=== PATIENT | female | born 2000 | race Caucasian/White ===

== ENCOUNTER 2023-07-12 14:50 | Emergency (ER) | payer OTHER, SELFPAY ==
--- NOTE | ~2023-07-12 | CT_ITS ---
EXAMINATION: CT cervical spine wo con DATE: 07/12/2023 20:55 INDICATION: Neck pain. Paresthesias. TECHNIQUE: Computed tomography (CT) of the cervical spine was performed without intravenous contrast. Automated exposure control and iterative reconstruction technique were employed. The dose-length pro duct was 439.74 mGy-cm. COMPARISON: None FINDINGS: There is kyphosis of cervical spine. Vertebral body heights are normal. Intervertebral disc heights are normal. 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 The following disc levels are specifically discussed: C2-C3: There is no uncovertebral joint osteoarthritis. There is mild bilateral facet joint osteoarthr itis. There is no neural foraminal stenosis. There is no central canal stenosis. C3-C4: There is no uncovertebral joint osteoarthritis. There is no facet joint osteoarthritis. There is no neural foraminal stenosis. There is mild central canal stenosis. C4-C5: There is no uncovertebral joint osteoarthritis. There is no facet joint osteoarthritis. There is no neural foraminal stenosis. There is mild central canal stenosis. C5-C6: There is mild bilateral uncovertebral joint osteoarthritis. There is no facet joint osteoarthr itis. There is no neural foraminal stenosis. There is mild central canal stenosis. C6-C7: There is no uncovertebral joint osteoarthritis. There is no facet joint osteoarthritis. There is no neural foraminal stenosis. There is mild central canal stenosis. C7-T1: There is no uncovertebral joint osteoarthritis. There is severe right and moderate left facet joint osteoarthritis. There is mild right neural foraminal stenosis. There is no central canal stenos is. IMPRESSION: 1. Mild cervical spondylosis. Reviewed, dictated and finalized at location E. ALL TECHNICIAN
--- NOTE | ~2023-07-12 | CT_ITS ---
EXAMINATION: CT brain wo con DATE: 07/12/2023 20:55 INDICATION: Paresthesias. Neck pain. TECHNIQUE: Computed tomography (CT) of the head was performed without intravenous contrast. The mA wa s adjusted according to patient size. Iterative reconstruction technique was employed. The dose-lengt h product was 605.33 mGy-cm. COMPARISON: None FINDINGS: There is no intracranial hemorrhage, acute infarction, or abnormal intracranial mass lesion . The ventricles are normal in size. The orbits are normal. There is mild mucosal thickening in the e thmoid sinuses. The mastoid air cells are normal. IMPRESSION: 1. Normal brain. Reviewed, dictated and finalized at location E. NT CHILDCARE PROVIDER IMPRESSION: 1. Normal brain.
--- NOTE | ~2023-07-12 | XR_ITS ---
EXAMINATION: XR chest 2V DATE: 07/12/2023 15:12 INDICATION: Chest pain. Left arm tingling. TECHNIQUE: Frontal and lateral views of the chest were obtained. COMPARISON: Chest 2 views 06/02/2017 FINDINGS: There is no pneumonia, pleural effusion, or pneumothorax. The heart size is normal. IMPRESSION: 1. No acute cardiopulmonary disease. Reviewed, dictated and finalized at location E. STRENGTH AND CONDITIONING COACH
[2023-07-12 14:52] VITALS: BP 143/91; PULSE 82; RESP 18; TEMP 36.6; O2SAT 100
--- NOTE | 2023-07-12 14:52 | ECG_ITS ---
Measurements Intervals [place] Rate: 77 P: 64 NC: 127 QRS: 34 QRSD: 112 T: 42 QT: 399 QTc: 454 Interpretive Statements SINUS RHYTHM WITH SINUS ARRHYTHMIA MODERATE INTRAVENTRICULAR CONDUCTION DELAY [110+ ms QRS DURATION] NO PREVIOUS ECG AVAILABLE FOR COMPARISON Electronically Signed On 07-12-2023 19:18:30 PRACTICAL NURSING FACULTY by Myrna Aj M.D.
[2023-07-12 15:46] LABS: Basophils Percent Auto 0.3 % (0.2-1.2); Eosinophils Absolute Auto 0.1 K/mm3 (0-0.3); Eosinophils Percent Auto 0.6 % (0-4.4); Hematocrit 41.3 % (37.0-47.0); Hemoglobin 13.9 g/dL (12.0-15.0); Immature Granulocyte Absolute 0.02 K/mm3 (0.00-0.031); Immature Granulocyte Percent A 0.3 % (0-0.5); Lymphocytes Absolute Auto 3.24 K/mm3 (0.9-3.2); Lymphocytes Percent Auto 41.6 % (18.3-44.2); Mean Corpuscular HGB Conc 33.7 g/dl (32-36); Mean Platelet Volume 10.2 fl (7.4-10.4); Monocytes Absolute Auto 0.4 K/mm3 (0.1-0.6); Monocytes Percent Auto 5.4 % (2.6-8.5); Neutrophils Percent Auto 51.8 % (45.5-73.1); Platelet Count Result 265 k/mm3 (150-375); Red Blood Count 4.49 M/mm3 (4.2-5.4); Red Cell Distribution Width 12.3 % (11.5-14.5); White Blood Count 7.8 K/mm3 (4.5-10.0)
[2023-07-12 15:56] LABS: Alanine Aminotransferase 18 U/L (6-35); Albumin Level 4.6 g/dL (3.5-5.1); Alkaline Phosphatase 59 U/L (38-126); Anion Gap 7 mmol/L (8-16); Aspartate Amino Transferase 30 U/L (14-36); Bilirubin,Total 0.5 mg/dL (0.2-1.3); Blood Urea Nitrogen 11 mg/dL (7-17); Calcium 9.2 mg/dL (8.4-10.2); Carbon Dioxide 24 mmol/L (22-30); Chloride 107 mmol/L (98-107); Estimated CRCL calculation 124 ml/min; Estimated Glomerular Filt Rate > 60; Glucose 86 mg/dL (65-110); Lipase 51 U/L (23-300); Potassium 3.9 mmol/L (3.4-5.0); Sodium 138 mmol/L (137-145)
[2023-07-12 16:02] LABS: Prothrombin Time 13.5 Seconds (11.1-14.7)
[2023-07-12 16:03] LABS: Partial Thromboplastin Time 30.3 SECONDS (22.3-36.8)
[2023-07-12 16:06] LABS: Troponin I < 0.012 ng/mL (0.000-0.034)
[2023-07-12 19:19] VITALS: BP 141/76; PULSE 83; RESP 14; O2SAT 99
--- NOTE | 2023-07-12 19:43 | ED.CHESTPAIN ---
HPI - Chest Pain General Chief Complaint: Chest Pain Stated Complaint: Chest pain since Sunday Time Seen by Provider: 07/12/23 19:41 Source: patient Mode of arrival: ambulatory Limitations: no limitations History of Present Illness HPI narrative: This is a 22-year-old female that presents to the emergency department for chest pain ongoing over the last week. Reports the pain is sharp and burning in nature. Also reports she has been experiencing some neck pain and paresthesias in her left arm. She has been seeing a chiropractor for this. Reports mild shortness of breath. Denies fever, cough, abdominal pain, or lower extremity edema. Related Data Allergies Allergy/AdvReac Type Severity Reaction Status Date / Time No Known Allergies Allergy Verified 07/12/23 19:42 Review of Systems Review of Systems: CONSTITUTIONAL: Denies fever CARDIOVASCULAR: Reports chest pain. Denies edema. RESPIRATORY: Reports dyspnea. Denies cough GASTROINTESTINAL: Denies abdominal pain, nausea, vomiting MUSCULOSKELETAL: Reports joint pain, and myalgia. NEUROLOGIC: Denies numbness, or weakness. All systems reviewed & are unremarkable except as noted in HPI and below PMFSH Past Medical History Medical History (Updated 07/12/23 @ 21:43 by Supriya Jaffe PA-C) No active medical problems Social History Social History (Updated 07/12/23 @ 21:43 by Supriya Jaffe PA-C) Smoking status: Never smoker Exam Narrative: GENERAL: Well-appearing, well-nourished, and in no acute distress. HEAD: Normocephalic, atraumatic. EYES: PERRLA and EOMI. ENT: Nares clear, no rhinorrhea or epistaxis. Mucous membranes moist. Oropharynx without tonsillar hypertrophy exudate or other lesions. Bilateral TMs pearly nguyen non-bulging NECK: Supple. No adenopathy or masses. No JVD CHEST: Clear to auscultation. No respiratory distress. No wheezes rales or rhonchi HEART: Regular rate and rhythm. No murmur heard. Normal peripheral pulses. ABDOMEN: Soft, nondistended, normal active bowel sounds. EXTREMITIES: Normal range of motion. No edema. Strength equal in bilateral upper and lower extremities (5/5) SKIN: Warm, dry, no rash. NEURO: No focal deficits. Alert and oriented x3. Cranial nerves 2-12 grossly intact PSYCH: Normal mood and affect Course Course Emergency Course: Patient updated on workup and agrees with plan of care Vital Signs Vital signs: Vital Signs Temperature 97.8 F 07/12/23 14:52 Pulse Rate 82 07/12/23 14:52 Respiratory Rate 18 07/12/23 14:52 Blood Pressure 143/91 H 07/12/23 14:52 Pulse Oximetry 100 07/12/23 14:52 Oxygen Delivery Room Air 07/12/23 14:52 Temperature 97.8 F 07/12/23 14:52 Pulse Rate 83 07/12/23 19:19 Respiratory Rate 14 07/12/23 19:19 Blood Pressure 141/76 H 07/12/23 19:19 Pulse Oximetry 99 07/12/23 19:19 Oxygen Delivery Room Air 07/12/23 19:45 MDM - Chest Pain MDM Narrative Medical decision making narrative: Patient presents to the emergency department for chest pain ongoing over the last several days. Reporting mild shortness of breath. Also reporting neck pain with left arm paresthesias. Patient's lungs are clear on exam. Oxygen saturation is 100% on room air. She is neurologically intact. CBC metabolic panel without concerning findings. EKG without acute ST changes in baseline and 3 hour troponin are negative. Her D-dimer is not elevated. Chest x-ray without acute cardiopulmonary abnormality. CT scan of her brain is normal. CT scan of her cervical spine shows mild cervical spondylosis. Her heart score is 1. Patient was updated on her workup. Resting comfortably. Instructed to have close follow-up with primary provider. She was given warnings to return to the ER Differential Diagnosis Differential diagnosis: Likely stable angina, atypical chest pain, costochondritis, chest pain and other (muscle strain, cervical radiculopathy) Lab Data Attestation: I reviewed the
[2023-07-12 19:56] LABS: Troponin I < 0.012 ng/mL (0.000-0.034)
[2023-07-12] MEDS: ACETAMINOPHEN 500 MG TABLET 1000 MG PO (20:08)
[2023-07-12] MEDS: KETOROLAC 15 MG/ML VIAL (*BKC) IV PUSH (20:08)
[2023-07-12] MEDS: PANTOPRAZOLE SODIUM IV 40 MG VIAL IV PUSH (20:09)
[2023-07-12 20:32] LABS: D Dimer 0.28 ug/mL (<0.48)
[2023-07-12 21:55] VITALS: BP 141/76; PULSE 78; RESP 16; O2SAT 98
== END 2023-07-12 21:57 | disposition home or self-care (01) ==
PROVIDERS: Emergency Medicine; Emergency Provider Physician Assistant
DX: M54.2 Cervicalgia (principal); R07.89 Other chest pain; M47.812 Spondylosis without myelopathy or radiculopathy, cervical region; I45.9 Conduction disorder, unspecified
CPT/HCPCS: 36415; 70450; 71046; 72125; 80053; 83690; 84484; 85025; 85380; 85610; 85730; 93005; 96374; 96375; 99284; A9270; C9113; J1885

== ENCOUNTER 2024-01-30 11:19 | Emergency (ER) | payer OTHER, SELFPAY ==
[2024-01-30 11:20] VITALS: BP 154/88; PULSE 105; RESP 18; TEMP 36.8; O2SAT 98
--- NOTE | 2024-01-30 11:36 | ED.GENADULT ---
HPI - General Adult General Chief complaint: Anxiety Stated complaint: anxiety Time Seen by Provider: 01/30/24 11:34 Source: patient Mode of arrival: ambulatory Limitations: no limitations History of Present Illness HPI narrative: 23-year-old female history of anxiety tonsillar stone presents to the ER with multiple complaints including -- decreased appetite and a weight loss of around 20 lb since the beginning of this month. patient has nausea without any vomiting/abdominal pain / diarrhea -- upper chest discomfort which is unrelated to activity. There is no radiation of the pain. -- Generalized weakness -- feels lightheaded when she stands up for long periods of time -- Intermittent chills without any fever. no fever or chills. No focal neuro deficits. Related Data Allergies Allergy/AdvReac Type Severity Reaction Status Date / Time No Known Allergies Allergy Verified 07/12/23 19:42 Review of Systems Review of Systems: All systems reviewed & are unremarkable except as noted in HPI and below Constitutional: Constitutional: Reports as per HPI, Reports no additional constitutional complaints, Reports chills and Reports weakness Eyes: Eyes: Reports as per HPI and Reports no additional eye complaints ENT: Reports system reviewed and no additional complaints, except as documented and Reports as per HPI Cardiovascular: Cardiovascular: Reports as per HPI, Reports no additional cardiovascular complaints and Reports chest pain Respiratory: Respiratory: Reports as per HPI, Reports no additional respiratory complaints and Reports dyspnea Gastrointestinal: Gastrointestinal: Reports as per HPI, Reports no additional gastrointestinal complaints and Reports nausea Comments: Anorexia Genitourinary: Genitourinary: Reports no additional female genitourinary complaints Musculoskeletal: Musculoskeletal: Reports no additional musculoskeletal complaints and Reports as per HPI Integumentary/Breasts: Skin/Breast: Reports system reviewed and no additional complaints, except as docu and Reports as per HPI Neurologic: Reports system reviewed and no additional complaints, except as documented and Reports as per HPI Psychiatric: Psychiatric: Reports no additional psychiatric complaints and Reports as per HPI Endocrine: Endocrine: Reports no additional endocrine complaints and Reports as per HPI Hematologic/Lymphatic: Hematologic/Lymphatic: Reports no additional hematologic/lymphatic complaints and Reports as per HPI Allergic/Immunologic: Allergic/Immunologic: Reports no additional allergic/immunologic complaints and Reports as per HPI PMFSH Past Medical History Medical History No active medical problems Social History Social History Smoking status: Never smoker Exam Narrative: blood pressure 154/88. Pulse rate of 105 with an oxygen saturation of 98% on room air. Const: General: healthy appearing and no acute distress Nutritional Appearance: well nourished Orientation/consciousness: patient oriented x3 Limitations: no limitations HENMT: Head: normal to inspection Ears: external ears normal Face/Nose/Sinus: Normal external nose present Face and sinus: normal facial exam Mouth: Yes Normal oral and palatal mucosa present Throat: posterior oropharynx normal Eyes: Conjunctivae: conjunctivae normal Pupils: Equal, round and reactive pupils present EOM: EOMs intact bilaterally Direct Ophthalmoscopy: no photophobia Neck: Neck: normal visual inspection, no lymphadenopathy and no meningeal signs Chest: Chest palpation & inspection: normal inspection of the chest Resp: Effort & Inspection: normal respiratory effort Auscultation: clear to auscultation bilaterally Cardio: Rate: regular rate Rhythm: regular rhythm GI: GI Palp: Yes Soft to palpation Auscultation: normal bowel sounds Other: No te
--- NOTE | 2024-01-30 11:47 | ECG_ITS ---
Test Date: 2024-01-30 11:55:29 Measurements Intervals [place] Rate: 93 P: 79 AR: 125 QRS: 82 QRSD: 106 T: 54 QT: 363 QTc: 451 Interpretive Statements SINUS RHYTHM No previous ECG available for comparison Electronically Signed On 01-30-2024 11:57:07 CDT by Kriss Jacinto M.D.
[2024-01-30 12:07] LABS: Basophils Absolute Auto 0.01 K/mm3 (0.00-0.10); Basophils Percent Auto 0.1 % (0.0-1.0); Hematocrit 42.9 % (35.0-49.0); Hemoglobin 14.9 g/dL (12.0-15.0); Immature Granulocyte Absolute 0.03 K/mm3 (0.00-0.00); Immature Granulocyte Percent A 0.3 % (0.0-0.0); Lymphocytes Percent Auto 22.9 % (18.0-42.0); Mean Corpuscular HGB Conc 34.7 g/dL (32-36); Mean Corpuscular Hemoglobin 31.6 pg (27.0-31.0); Mean Corpuscular Volume 91.1 fL (78.0-102.0); Mean Platelet Volume 10.3 fl (9.2-11.8); Monocytes Absolute Auto 0.32 K/mm3 (0.10-0.90); Monocytes Percent Auto 3.3 % (2.0-11.0); Neutrophils Absolute Auto 7.05 K/mm3 (1.70-7.20); Neutrophils Percent Auto 73.4 % (50.0-70.0); Platelet Count Result 302 K/mm3 (150-420); Red Blood Count 4.71 M/mm3 (4.20-5.40); White Blood Count 9.6 K/mm3 (4.8-10.8)
[2024-01-30 12:10] VITALS: BP 120/74; PULSE 101; RESP 20; O2SAT 97
[2024-01-30 12:19] LABS: Prothrombin Time 10.7 Seconds (9.50-12.1)
[2024-01-30 12:26] LABS: Troponin I < 4.0 ng/L (0.00-60.4)
[2024-01-30 12:29] LABS: Appearance Urine Clear (Clear); Bilirubin Urine Negative (Negative); Blood Urine Negative (Negative); Color Urine Light Yellow (Yellow); Glucose Urine UA Negative (Negative); Ketones Urine Negative (Negative); Leukocyte Esterase Ur Negative LEU/UL (Negative); Nitrate Urine Negative (Negative); Protein Urine Negative (Negative); Urobilinogen Urine 0.2 mg/dL (0.2-1.0)
[2024-01-30 12:29] LABS: Lactic Acid Reflex 1.1 mmol/L (0.4-2.0)
[2024-01-30 12:32] LABS: Alanine Aminotransferase 15 U/L (14-59); Albumin Level 3.9 g/dL (3.4-5.0); Alkaline Phosphatase 48 U/L (46-116); Anion Gap 10 mmol/L (4-12); Aspartate Amino Transferase 20 U/L (15-37); Bilirubin,Total 0.4 mg/dL (0.00-1.00); Blood Urea Nitrogen 10 mg/dL (7-18); Calcium 8.9 mg/dL (8.5-10.1); Carbon Dioxide 25 mmol/L (21-32); Chloride 104 mmol/L (98-108); Estimated CRCL calculation 109 ml/min; Estimated Glomerular Filt Rate > 60; Glucose 87 mg/dL (70-99); Lipase 17 U/L (16-77); Osmolality Calculated 286 mOsm/kg (285-295); Potassium 3.9 mmol/L (3.5-5.1); Sodium 139 mmol/L (136-145); Thyroid Stimulating Hormone 0.81 uIU/mL (0.36-3.74); Total Protein 7.6 g/dL (6.4-8.2)
[2024-01-30 12:32] LABS: Add Urine Microscopic? NO
[2024-01-30 12:32] LABS: Pregnancy On Board Control Positive; Urine Pregnancy Test Negative
[2024-01-30 13:05] VITALS: BP 122/78; PULSE 89; RESP 20; O2SAT 99
== END 2024-01-30 13:05 | disposition home or self-care (01) ==
PROVIDERS: Emergency Provider Internal Medicine Critical Care Medicine; PCP Family Medicine
DX: F41.9 Anxiety disorder, unspecified (principal); R07.9 Chest pain, unspecified
CPT/HCPCS: 36415; 80053; 81003; 81025; 83605; 83690; 84443; 84484; 85025; 85610; 93005; 99283

== ENCOUNTER 2024-05-29 11:03 | Outpatient (CLI) | payer OTHER, SELFPAY ==
--- NOTE | ~2024-05-29 | XR_ITS ---
XR chest 2V Ordering provider: Albert De La Cruz MD History: 23 years Female with . CHEST PAIN mid back pain x 1 month off and on. . Comparison: July 12, 2023 FINDINGS: MEDIASTINUM: The cardiac silhouette is not enlarged. LUNGS: No effusions or pneumothorax. Loss of silhouette of the left hemidiaphragm medially is noted w hich may be focal atelectasis or pneumonia. Clinical correlation advised. OTHER: No free air under the diaphragm. IMPRESSION: Focal area of loss of silhouette of the left hemidiaphragm medially which may be due to atelectasis v ersus pneumonia. Clinical correlation and follow-up advised. Reviewed, dictated and finalized at location A. IMPRESSION: Focal area of loss of silhouette of the left hemidiaphragm medially which may b e due to atelectasis versus pneumonia. Clinical correlation and follow-up advis ed.
--- NOTE | ~2024-05-29 | XR_ITS ---
3 VIEWS THORACIC SPINE Ordering provider: Albert De La Cruz MD History: . CHEST PAIN mid back pain x 1 month off and on. . Comparison: None. FINDINGS: VERTEBRAL BODIES: Normal height and alignment. No visible fracture or subluxation. DISK SPACES: Normal. SOFT TISSUES: Normal. IMPRESSION: No acute osseous abnormality of the thoracic spine. Reviewed, dictated and finalized at location A.
== END 2024-05-29 11:04 | disposition home or self-care (01) ==
LOC: CHSIMG 11:05
PROVIDERS: PCP Family Medicine; Visit Provider Family Medicine
DX: R07.9 Chest pain, unspecified (principal); M54.9 Dorsalgia, unspecified; R91.8 Other nonspecific abnormal finding of lung field
CPT/HCPCS: 71046; 72072

== ENCOUNTER 2024-06-30 13:31 | Outpatient (CLI) | payer OTHER, SELFPAY ==
--- NOTE | ~2024-06-30 | XR_ITS ---
EXAMINATION: XR chest 2V Exam Date/Time: 06/30/2024 13:35 ROUTING CLERK HISTORY: Chest XR F/U X 1 month, no complaints, no surgery, Nonsmoker Comparison: 05/29/2024. RESULT: Lines, tubes, and devices: None. Lungs and pleura: Clear. Cardiomediastinal silhouette: Stable. Other: No acute osseous or upper abdominal finding. IMPRESSION: No acute cardiopulmonary process. Reviewed, dictated and finalized at location K. ING CLERK
== END 2024-06-30 13:32 | disposition home or self-care (01) ==
LOC: CHSIMG 13:33
PROVIDERS: PCP Family Medicine; Visit Provider Family Medicine
DX: R07.9 Chest pain, unspecified (principal)
CPT/HCPCS: 71046